=== PATIENT | male | born 1970 | race Caucasian/White ===

== ENCOUNTER 2017-02-04 20:55 | Emergency (ER) | payer OTHER ==
[~2017-02-04] VITALS: Ht 180.3 cm; Wt 75.3 kg
[2017-02-04 22:17] VITALS: BP 144/84
== END 2017-02-04 22:58 | disposition home or self-care (01) ==
LOC: ED 20:55
DX: R00.2 Palpitations (principal); F15.10 Other stimulant abuse, uncomplicated